=== PATIENT | male | born 1985 | race Two or more races ===

== ENCOUNTER 2021-03-28 04:30 | Emergency (ER) | payer SELFPAY ==
[~2021-03-28] VITALS: Ht 170.2 cm; Wt 68.0 kg
[2021-03-28 04:30] VITALS: BP 121/75
--- NOTE | 2021-03-28 04:58 | NUR ---
PATIENT REFUSED BLOOD DRAW. DR GALLOWAY NOTIFIED.
== END 2021-03-28 05:15 | disposition home or self-care (01) ==
LOC: ER 04:33
DX: R45.6 Violent behavior (principal); F10.129 Alcohol abuse with intoxication, unspecified; Y90.9 Presence of alcohol in blood, level not specified